=== PATIENT | female | born 1980 | race African-American/Black ===

== ENCOUNTER 2018-07-06 09:01 | Emergency (ER) | payer MEDICARE, MEDICAID ==
[2018-07-06] MEDS ORDERED: Ibuprofen 800 MG TAB ONE (10:01)
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
== END 2018-07-06 10:42 | disposition home or self-care (01) ==
LOC: NAV ERS 09:01
DX: S13.4XXA Sprain of ligaments of cervical spine, initial encounter (principal); S70.12XA Contusion of left thigh, initial encounter; S20.222A Contusion of left back wall of thorax, initial encounter; F41.9 Anxiety disorder, unspecified; J44.9 Chronic obstructive pulmonary disease, unspecified; F31.9 Bipolar disorder, unspecified; F17.210 Nicotine dependence, cigarettes, uncomplicated; V49.50XA Passenger injured in collision with unspecified motor vehicles in traffic accident, initial encounter
CPT/HCPCS: 72050